=== PATIENT | female | born 1940 | race Caucasian/White ===

== ENCOUNTER 2016-10-17 12:41 | Emergency (ER) ==
[2016-10-17 12:49] VITALS: BP 134/66; TEMP 96.8; BMI 35.4
[2016-10-17 13:29] LABS: ABG BASE EXCESS -6 (-2.0-2.0); ABG HCO3 18.3 (22.0-26.0); ABG PH 7.408 (7.35-7.45); ABG TCO2 19 (22.0-28.0)
[2016-10-17 13:37] LABS: BASOPHILS % (AUTO) 0.2 % (0.0-3.0); EOSINOPHILS # (AUTO) 0.1 K/ul (0.0-0.7); EOSINOPHILS % (AUTO) 0.9 % (0.0-7.0); HEMATOCRIT 28.5 % (37.0-47.0); HEMOGLOBIN 8.9 g/dl (12.0-16.0); IMMATURE GRANULOCYTE % (AUTO) 0.8 % (0.0-5.0); LYMPHOCYTES # (AUTO) 1.7 K/uL (0.60-3.4); MEAN CORPUSCULAR HEMOGLOBIN 27.2 pg (27.0-31.0); MEAN CORPUSCULAR HGB CONC 31.2 (31.8-35.4); MEAN CORPUSCULAR VOLUME 87.2 fl (81.0-99.0); MONOCYTES # (AUTO) 0.5 K/uL (0.4-2.0); MONOCYTES % (AUTO) 4.5 (0-10); NEUTROPHILS % (AUTO) 77.6; PLATELET COUNT 363 10^3/uL (140-440); RED BLOOD COUNT 3.27 10^6/ul (4.20-5.40); WHITE BLOOD COUNT 10.33 K/ul (4.6-10.2)
--- NOTE | 2016-10-17 13:55 | DI ---
EXAM: Two views of the chest. History: Cough. Comparison: Chest radiograph 12/02/2015 Findings: Hiatal hernia is suspected. Heart may be mildly enlarged. No pleural fluid and no pneumo thorax. Bilateral reticulonodular interstitial thickening similar to the prior study. Visualized os seous structures unchanged. Impression: 1. No change in the bilateral reticulonodular interstitial thickening could be infectious/inflammat ory or fibrotic. Recommend further evaluation with chest CT with high resolution images. 2. Large hiatal hernia is suspected.
[2016-10-17 14:21] LABS: ALANINE AMINOTRANSFERASE 11 U/L (12-78); ALBUMIN 3.8 g/dL (3.4-5.0); ALBUMIN/GLOBULIN RATIO 1.06; ALKALINE PHOSPHATASE 68 U/L (53-141); ANION GAP 13.4; ASPARTATE AMINO TRANSFERASE 19 U/L (15-37); BILIRUBIN,TOTAL 0.44 mg/dL (0.00-1.20); BLOOD UREA NITROGEN 32 mg/dL (7-18); BUN/CREATININE RATIO 33.68; CALCIUM 9.2 mg/dL (8.2-10.2); CARBON DIOXIDE 21 mmol/L (23-31); CHLORIDE 107 mmol/L (98-107); CREATINE KINASE 61 U/L; CREATININE 0.95 mg/dL (0.60-1.30); GLUCOSE 127 mg/dL (82-115); POTASSIUM 4.4 mmol/L (3.5-5.10); SODIUM 137 mmol/L (136-145); TOTAL PROTEIN 7.4 g/dL (5.8-8.1)
[2016-10-17 15:23] LABS: OCCULT BLOOD INTERNAL QC 1 INTERNAL QC VALID; OCCULT BLOOD INTERNAL QC 2 INTERNAL QC VALID; OCCULT BLOOD INTERNAL QC 3 INTERNAL QC VALID; OCCULT BLOOD SAMPLE 1 POSITIVE (NEGATIVE); OCCULT BLOOD SAMPLE 2 NO SPECIMEN RECEIVED (NEGATIVE); OCCULT BLOOD SAMPLE 3 NO SPECIMEN RECEIVED (NEGATIVE)
--- NOTE | 2016-10-17 15:56 | ED.PDOC ---
General ED Provider: Dr. PAUL MCCAIN Chief Complaint: Weakness Stated Complaint: weakness, tarry stools Time Seen by Physician: 13:00 (denied PLAVIX/ ASA/ nsaids) Mode of Arrival: Wheelchair Information Source: Patient Exam Limitations: No limitations Primary Care Provider: KITA DIETZ Nursing and Triage Documentation Reviewed and Agree: Yes Review of Systems - Review Of Systems Constitutional: Reports: Malaise, Weakness Eyes: Reports: No symptoms Ears, Nose, Mouth, Throat: Reports: No symptoms Respiratory: Reports: No symptoms Cardiac: Reports: No symptoms GI: Reports: Other (BLACK STOOLS) : Reports: No symptoms Musculoskeletal: Reports: No symptoms Skin: Reports: No symptoms Neurological: Reports: No symptoms Endocrine: Reports: No symptoms Hematologic/Lymphatic: Reports: No symptoms All Other Systems: Reviewed and Negative Past Medical History - Past Medical History Previously Healthy: Yes Endocrine: Reports: None Cardiovascular: Reports: Hypertension Respiratory: Reports: None Hematological: Reports: None Gastrointestinal: Reports: None Genitourinary: Reports: None Neuro/Psych: Reports: None Musculoskeletal: Reports: None Cancer: Reports: None Last Menstrual Period: na Other Pertinent Past Medical History: CT head 12-05-[address] head - Surgical History General Surgical History: Reports: None - Family History Family History: Reports: Unknown - Social History Smoking Status: Never smoker Hx Substance Use: No Alcohol Screening: None Physical Exam - Physical Exam Appearance: Well-appearing, No pain distress, Well-nourished Eyes: JENI, EOMI, Conjunctiva clear ENT: Ears normal, Nose normal, Oropharynx normal Respiratory: Airway patent, Breath sounds clear, Breath sounds equal, Respirations nonlabored Cardiovascular: RRR, Pulses normal, No rub, No murmur GI/: Soft, Nontender, No masses, Bowel sounds normal, No Organomegaly Musculoskeletal: Normal strength, ROM intact, No edema, No calf tenderness Skin: Warm, Dry, Normal color Neurological: Sensation intact, Motor intact, Reflexes intact, Cranial nerves intact, Alert, Oriented Psychiatric: Affect appropriate, Mood appropriate Physician Notification - Case Discussed Physician Notified: faby MALLORY Time of Notification: 16:35 (TRANSFER ) Critical Care Note - Critical Care Note Total Time (mins): 0 Course - Course Hematology/Chemistry: 10/17/16 13:15 10/17/16 13:15 Orders, Labs, Meds: Lab Review 10/17/16 10/17/16 10/17/16 12:59 13:15 15:10 WBC 10.33 H RBC 3.27 L Hgb 8.9 L Hct 28.5 L MCV 87.2 MCH 27.2 MCHC 31.2 L RDW Coeff of Pietro 16.5 H Plt Count 363 Immature Gran % (Auto) 0.8 Neut % (Auto) 77.6 Lymph % (Auto) 16.0 [place] % (Auto) 4.5 Eos % (Auto) 0.9 Baso % (Auto) 0.2 Immature Gran # (Auto) 0.1 Neut # 8.0 H Lymph # 1.7 [place] # 0.5 Eos # 0.1 Baso # 0.0 D-Dimer 350.66 H Puncture Site Lb O2 Saturation 94.0 L ABG pH 7.408 ABG pCO2 29.0 L ABG pO2 69.0 L ABG HCO3 18.3 L ABG Total CO2 19 L ABG Base Excess -6 L FiO2 % 21.0 Sodium 137 Potassium 4.4 Chloride 107 Carbon Dioxide 21 L Anion Gap 13.4 BUN 32 H Creatinine 0.95 Estimated GFR (MDRD) 57.00 BUN/Creatinine Ratio 33.68 Glucose 127 H Calcium 9.2 Total Bilirubin 0.44 AST 19 ALT 11 L Alkaline Phosphatase 68 Total Creatine Kinase 61 Troponin I < 0.0100 Total Protein 7.4 Albumin 3.8 Globulin 3.6 Albumin/Globulin Ratio 1.06 TSH 3.546 Free T4 1.13 Stl Occult Blood (IFOB) Positive Stool Occult Blood #2 No specimen received Stool Occult Blood #3 No specimen received Orders Category Date Time Status ABG DRAW REQUEST Stat CARDIO 10/17/16 12:59 Completed EKG-(ED ONLY) Stat CARDIO 10/17/16 12:58 Completed ABG Stat LAB 10/17/16 12:59 Completed CBC W/ AUTO DIFF Stat LAB 10/17/16 13:15 Completed COMPREHENSIVE METABOLIC PANEL Stat LAB 10/17/16 13:15 Completed CREATINE KINASE Stat LAB 10/17/16 13:15 Completed D-DIMER Stat LAB 10/17/16 13:15 Completed FREE T4 (FREE THYROXINE) Stat LAB 10/17/16 13:15 Completed OCCULT BLOOD, STOOL Stat LAB 10/17/16 15:10 Completed THYROID STIMULATING HORMONE Stat LAB 10/17/16 13:15 Completed TROPONIN I Stat LAB 10/17/16 13:15 Completed URINALYSIS C & S IF INDICATED Stat LAB 10/17/16 12:58 Uncollected CHEST, 2 VIEWS PA & LAT Stat RADS 10/17/16 12:58 Completed Vital Signs: Temp Pulse Resp BP Pulse Ox 10/17/16 12:44 96.8 F L 67 16 134/66 97 Departure - Departure Time of Disposition: 17:00 Disposition: TSF SHORT-TRM HOSP Discharge Problem: Anemia Qualifiers: Anemia type: unspecified type Qualifier Code: (D64.9) Anemia, unspecified Instructions: Anemia (ED) Condition: Good Pt referred to PMD for follow-up: No Additional Instructions: Please call your Family Physician as soon as possible to schedule a follow-up appointment. Allergies/Adverse Reactions: Allergies codeine Allergy (Severe, Verified 10/17/16 12:43) Abdominal Pain Sulfa (Sulfonamide Antibiotics) Allergy (Intermediate, Verified 10/17/16 12:43) Sore Mouth amoxicillin trihydrate [From Augmentin] Adverse Reaction (Verified 10/17/16 12: 43) potassium clavulanate [From Augmentin] Adverse Reaction (Verified 10/17/16 12:43 ) Disposition Discussed With: Patient
== END 2016-10-17 17:15 | disposition short-term general hospital (02) ==
LOC: ED 12:41
DX: D64.9 Anemia, unspecified (principal); R53.1 Weakness; K92.1 Melena
CPT/HCPCS: 36415; 80053; 82272; 82550; 82803; 84439; 84443; 84484; 85025; 85379; 93005; 93010; 99285

== ENCOUNTER 2016-10-17 17:11 | Outpatient (CLI) ==
[2016-10-17 12:49] VITALS: BMI 35.4
== END 2016-10-17 17:12 | disposition home or self-care (01) ==
LOC: AMBL 17:11
PROVIDERS: ATTEND Internal Medicine
DX: K92.2 Gastrointestinal hemorrhage, unspecified (principal); R10.9 Unspecified abdominal pain

== ENCOUNTER 2016-10-22 12:57 | Emergency (ER) ==
[2016-10-22 13:14] VITALS: BP 126/68; TEMP 98; BMI 34.4
[2016-10-22 13:16] LABS: BASOPHILS % (AUTO) 0.3 % (0.0-3.0); EOSINOPHILS % (AUTO) 0.5 % (0.0-7.0); HEMOGLOBIN 6.5 g/dl (12.0-16.0); IMMATURE GRANULOCYTE % (AUTO) 0.7 % (0.0-5.0); LYMPHOCYTES # (AUTO) 1.2 K/uL (0.60-3.4); LYMPHOCYTES % (AUTO) 13.7 (10.0-50.0); MEAN CORPUSCULAR HEMOGLOBIN 27.9 pg (27.0-31.0); MEAN CORPUSCULAR HGB CONC 31.6 (31.8-35.4); MEAN CORPUSCULAR VOLUME 88.4 fl (81.0-99.0); MONOCYTES # (AUTO) 0.6 K/uL (0.4-2.0); MONOCYTES % (AUTO) 6.3 (0-10); NEUTROPHILS # (AUTO) 6.9 K/ul (2.0-6.9); NEUTROPHILS % (AUTO) 78.5; PLATELET COUNT 345 10^3/uL (140-440); RED BLOOD COUNT 2.33 10^6/ul (4.20-5.40); WHITE BLOOD COUNT 8.79 K/ul (4.6-10.2)
[2016-10-22 13:20] LABS: HEMATOCRIT 20.6 % (37.0-47.0)
[2016-10-22 13:36] LABS: PARTIAL THROMBOPLASTIN TIME 21.4 SEC (23.9-40.0); PROTHROMBIN TIME 10.8 SEC (9.3-11.0)
[2016-10-22 13:42] LABS: ALBUMIN 3.2 g/dL (3.4-5.0); ANION GAP 15.1; BILIRUBIN,TOTAL 0.58 mg/dL (0.00-1.20); BUN/CREATININE RATIO 25.6; CALCIUM 8.6 mg/dL (8.2-10.2); CREATININE 0.82 mg/dL (0.60-1.30); POTASSIUM 4.1 mmol/L (3.5-5.10); TOTAL PROTEIN 6.4 g/dL (5.8-8.1); TROPONIN I 0.026 ng/ml (0.0000-0.4000)
--- NOTE | 2016-10-22 14:27 | ED.PDOC ---
General ED Provider: Dr. PAUL MCCAIN Chief Complaint: Dizziness Stated Complaint: DIZZINESS Time Seen by Physician: 13:10 Mode of Arrival: Wheelchair Information Source: Patient Exam Limitations: No limitations Primary Care Provider: KITA DIETZ Nursing and Triage Documentation Reviewed and Agree: Yes GI Complaint Exam - GI Bleed Complaint/Exam Patient Complains of: Reports: Black stools Onset/Duration: 1 WEEK NO BRIGHTRED STOOLS Symptoms Are: Still present (TRANSFERE TO [facility] A FEW DAYS AGO WAS D/C 2 DAYS AGO SHE UNDERWENT ENDOSCOPY WAS TOLD SHE HAS AN ULCER) Severity: Reports: Black tarry stool Location of Pain: Reports: Discrete (EPIGASTRIC) Character: Reports: Cramping Aggravating: Reports: None Alleviating: Reports: None Associated Signs and Symptoms: Denies: Back Pain, Pallor, Dizziness, Weakness, Syncope, Constipation, Nausea, Rectal pain, Bruising, Weight loss, Recent abnormal coags Related History: Reports: Similar episode GI Bleed Risk Factors: Reports: None Recent EGD: Yes Differential Diagnoses: Esophagitis, Gastritis Review of Systems - Review Of Systems Constitutional: Reports: Weakness Eyes: Reports: No symptoms Ears, Nose, Mouth, Throat: Reports: No symptoms Respiratory: Reports: No symptoms Cardiac: Reports: No symptoms GI: Reports: Other (BLACK STOOL) : Reports: No symptoms Musculoskeletal: Reports: No symptoms Skin: Reports: No symptoms Neurological: Reports: No symptoms Endocrine: Reports: No symptoms Hematologic/Lymphatic: Reports: No symptoms All Other Systems: Reviewed and Negative Past Medical History - Past Medical History Previously Healthy: Yes Endocrine: Reports: None Cardiovascular: Reports: Hypertension Respiratory: Reports: None Hematological: Reports: None Gastrointestinal: Reports: None Genitourinary: Reports: None Neuro/Psych: Reports: None Musculoskeletal: Reports: None Cancer: Reports: None Last Menstrual Period: none Other Pertinent Past Medical History: CT head 12-05-[address] head - Surgical History General Surgical History: Reports: None - Family History Family History: Reports: Unknown - Social History Smoking Status: Never smoker Hx Substance Use: No Alcohol Screening: None Physical Exam - Physical Exam Appearance: Ill-appearing Ill-appearing: Moderate Pain Distress: Mild Eyes: JENI, EOMI, Conjunctiva clear ENT: Ears normal, Nose normal, Oropharynx normal Respiratory: Airway patent, Breath sounds clear, Breath sounds equal, Respirations nonlabored Cardiovascular: RRR, Pulses normal, No rub, No murmur GI/: Soft, Nontender, No masses, Bowel sounds normal, No Organomegaly Musculoskeletal: Normal strength, ROM intact, No edema, No calf tenderness Skin: Warm, Dry, Normal color Neurological: Sensation intact, Motor intact, Reflexes intact, Cranial nerves intact, Alert, Oriented Psychiatric: Affect appropriate, Mood appropriate Physician Notification - Case Discussed Physician Notified: JONIIST ARPAN Time of Notification: 14:28 (TRANSFERED ) Critical Care Note - Critical Care Note Total Time (mins): 0 Course - Course Hematology/Chemistry: 10/22/16 13:10 10/22/16 13:10 Orders, Labs, Meds: Lab Review 10/22/16 13:10 WBC 8.79 RBC 2.33 L Hgb 6.5 L Hct 20.6 L* MCV 88.4 MCH 27.9 MCHC 31.6 L RDW Coeff of Pietro 17.4 H Plt Count 345 Immature Gran % (Auto) 0.7 Neut % (Auto) 78.5 Lymph % (Auto) 13.7 [place] % (Auto) 6.3 Eos % (Auto) 0.5 Baso % (Auto) 0.3 Immature Gran # (Auto) 0.1 Neut # 6.9 Lymph # 1.2 [place] # 0.6 Eos # 0.0 Baso # 0.0 PT 10.8 INR 1.05 APTT 21.4 L Sodium 134 L Potassium 4.1 Chloride 103 Carbon Dioxide 20 L Anion Gap 15.1 BUN 21 H Creatinine 0.82 Estimated GFR (MDRD) 67.00 BUN/Creatinine Ratio 25.60 Glucose 125 H Calcium 8.6 Total Bilirubin 0.58 AST 19 ALT 13 Alkaline Phosphatase 57 Total Creatine Kinase 73 Troponin I 0.0260 Total Protein 6.4 Albumin 3.2 L Globulin 3.2 Albumin/Globulin Ratio 1.00 Orders Category Date Time Status EKG-(ED ONLY) Stat CARDIO 10/22/16 13:04 Completed CBC W/ AUTO DIFF Stat LAB 10/22/16 13:10 Completed COMPREHENSIVE METABOLIC PANEL Stat LAB 10/22/16 13:10 Completed CREATINE KINASE Stat LAB 10/22/16 13:10 Completed PARTIAL THROMBOPLASTIN TIME Stat LAB 10/22/16 13:10 Completed PT WITH INR Stat LAB 10/22/16 13:10 Completed TROPONIN I Stat LAB 10/22/16 13:10 Completed CHEST, 2 VIEWS PA & LAT Stat RADS 10/22/16 13:04 Ordered Vital Signs: Temp Pulse Resp BP Pulse Ox 10/22/16 13:06 98.0 F 71 20 126/68 99 Departure - Departure Time of Disposition: 14:28 Disposition: TSF SHORT-TRM HOSP Discharge Problem: Dizziness GI bleed Qualifiers: GI bleed type/associated pathology: melena Qualifier Code: (K92.1) Melena Instructions: Rectal Bleeding (ED), Gastrointestinal Bleeding (ED) Condition: Good Pt referred to PMD for follow-up: No Allergies/Adverse Reactions: Allergies codeine Allergy (Severe, Verified 10/22/16 13:14) Abdominal Pain Sulfa (Sulfonamide Antibiotics) Allergy (Intermediate, Verified 10/22/16 13:14) Sore Mouth amoxicillin trihydrate [From Augmentin] Adverse Reaction (Verified 10/22/16 13: 14) potassium clavulanate [From Augmentin] Adverse Reaction (Verified 10/22/16 13:14 ) Home Medications: Ambulatory Orders Pantoprazole Sodium [Protonix] 40 mg PO DAILY 10/22/16 Tramadol HCl [Ultram] 50 mg PO Q6H 10/22/16 Disposition Discussed With: Patient
== END 2016-10-22 14:42 | disposition short-term general hospital (02) ==
LOC: ED 12:57
DX: R42 Dizziness and giddiness (principal); K92.1 Melena; R53.1 Weakness; I10 Essential (primary) hypertension; R10.13 Epigastric pain
CPT/HCPCS: 36415; 80053; 82550; 84484; 85025; 85610; 85730; 93005; 93010; 99285

== ENCOUNTER 2016-10-22 14:50 | Outpatient (CLI) ==
[2016-10-22 13:14] VITALS: BMI 34.4
== END 2016-10-22 14:51 | disposition home or self-care (01) ==
LOC: AMBL 14:50
PROVIDERS: ATTEND Internal Medicine
DX: R53.1 Weakness (principal); K92.2 Gastrointestinal hemorrhage, unspecified

== ENCOUNTER 2016-11-01 07:43 | Outpatient (CLI) ==
[2016-11-01 07:20] VITALS: BP 137/81; TEMP 99; BMI 34.9
--- NOTE | 2016-11-01 07:30 | ED.PDOC ---
Medical Screening Exam - General Information Time Seen by Physician*: 07:29 Mode of Arrival: Walk-In Information Source: Patient - History Chief Complaint: Non-specific Complaint Course - Course Orders, Labs, Meds: Orders Category Date Time Status EKG-(ED ONLY) Stat CARDIO 11/01/16 07:28 Ordered B-TYPE NATRIURETIC PEPTIDE Stat LAB 11/01/16 07:28 Ordered CBC W/ AUTO DIFF Stat LAB 11/01/16 07:28 Ordered COMPREHENSIVE METABOLIC PANEL Stat LAB 11/01/16 07:28 Ordered CREATINE KINASE Stat LAB 11/01/16 07:28 Ordered TROPONIN I Stat LAB 11/01/16 07:28 Ordered Vital Signs: Temp Pulse Resp BP Pulse Ox 11/01/16 07:12 99.0 F 70 20 137/81 93 L Departure - Departure Allergies/Adverse Reactions: Allergies codeine Allergy (Severe, Verified 11/01/16 07:28) Abdominal Pain Sulfa (Sulfonamide Antibiotics) Allergy (Intermediate, Verified 11/01/16 07:28) Sore Mouth amoxicillin trihydrate [From Augmentin] Adverse Reaction (Verified 11/01/16 07: 28) potassium clavulanate [From Augmentin] Adverse Reaction (Verified 11/01/16 07:28 ) Home Medications: Ambulatory Orders Pantoprazole Sodium [Protonix] 40 mg PO DAILY 10/22/16 Tramadol HCl [Ultram] 50 mg PO Q6H 10/22/16
[2016-11-01 07:56] LABS: BASOPHILS % (AUTO) 0.3 % (0.0-3.0); EOSINOPHILS # (AUTO) 0.2 K/ul (0.0-0.7); EOSINOPHILS % (AUTO) 2.4 % (0.0-7.0); HEMATOCRIT 26.1 % (37.0-47.0); HEMOGLOBIN 8.3 g/dl (12.0-16.0); IMMATURE GRANULOCYTE % (AUTO) 0.4 % (0.0-5.0); LYMPHOCYTES # (AUTO) 1.4 K/uL (0.60-3.4); LYMPHOCYTES % (AUTO) 18.5 (10.0-50.0); MEAN CORPUSCULAR HGB CONC 31.8 (31.8-35.4); MONOCYTES # (AUTO) 0.7 K/uL (0.4-2.0); MONOCYTES % (AUTO) 9.6 (0-10); NEUTROPHILS # (AUTO) 5.3 K/ul (2.0-6.9); NEUTROPHILS % (AUTO) 68.8; PLATELET COUNT 417 10^3/uL (140-440); RED BLOOD COUNT 3.07 10^6/ul (4.20-5.40); WHITE BLOOD COUNT 7.62 K/ul (4.6-10.2)
== END 2016-11-01 07:44 | disposition home or self-care (01) ==
LOC: LAB 07:43
PROVIDERS: ATTEND Internal Medicine
DX: D64.9 Anemia, unspecified (principal)
CPT/HCPCS: 36415; 85025